=== PATIENT | male | born 1985 | race Caucasian/White ===

== ENCOUNTER 2018-09-23 07:20 | Emergency (ER) | payer BC ==
--- OUTSIDE RECORDS SUMMARY | 2018-09-23 07:23 | XMS REPORT | Clinical Summary ---
:1985 Author Organization [facility] Address [address] [place] [address] Care Team Providers Name Role Phone Troy Luna MD Primary Care Provider Allergies Active Allergy Reactions Severity Noted Date Comments Sulfa (Sulfonamide Antibiotics) 08/01/2016 Medications Medication Sig Dispensed Refills Start Date End Date Status metoprolol tartrate 1 tablet daily. 0 Active (LOPRESSOR) 50 mg tablet Hospital, Clinic, or Ordered Dose Route Frequency Start Date End Date Status Other Facility Administered Medication onabotulinumtoxinA 200 Units inj once 08/21/2016 Active (BOTOX) injection 200 UnitsIndications: Spasmodic torticollis onabotulinumtoxinA 200 Units inj once 11/20/2016 Active (BOTOX) injection 200 UnitsIndications: Spasmodic torticollis onabotulinumtoxinA 200 Units inj once 02/19/2017 Active (BOTOX) injection 200 UnitsIndications: Spasmodic torticollis onabotulinumtoxinA 200 Units inj once 02/18/2018 Active (BOTOX) injection 200 8 UnitsIndications: Spasmodic torticollis onabotulinumtoxinA 200 Units inj once 06/18/2017 Discontinued (BOTOX) injection 200 8 UnitsIndications: Spasmodic torticollis onabotulinumtoxinA 200 Units inj once 10/22/2017 Discontinued (BOTOX) injection 200 8 UnitsIndications: Spasmodic torticollis Active Problems Problem Noted Date Abnormal liver enzymes 08/01/2016 Neck pain 08/01/2016 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 08/01/2016 Encounters Date Type Specialty Care Team Description 02/18/2018 Clinical Support Neurology Fadia Mullins MD Spasmodic torticollis 02/17/2018 Telephone Neurology Fadia Mullins MD 10/22/2017 Clinical Support Neurology Fadia Mullins MD Tic of organic origin (Primary Dx); Spasmodic torticollis after 09/22/2017 Social History Tobacco Use Types Packs/Day Years Used Date Former Smoker Smokeless Tobacco: Never Used Alcohol Use Drinks/Week oz/Week Comments Yes Occasional Sex Assigned at Date Recorded Not on file Job Start Date Occupation Industry Not on file Not on file Not on file Travel History Travel Start Travel End No recent travel history available. Last Filed Vital Signs Vital Sign Reading Time Taken Blood Pressure 112/75 02/18/2018 1:07 PM CDT Pulse 68 02/18/2018 1:07 PM CDT Temperature - - Respiratory Rate - - Oxygen Saturation - - Inhaled Oxygen Concentration - - Weight 102 kg (224 lb 12.8 oz) 02/18/2018 1:07 PM CDT Height 172.7 cm (5' 8") 02/18/2018 1:07 PM CDT Body Mass Index 34.18 02/18/2018 1:07 PM CDT Plan of Treatment Health Maintenance Due Date Last Done Comments INFLUENZA VACCINE 04/02/2018 Results Not on fileafter 09/22/2017 Insurance Payer Benefit Plan / Group Subscriber ID Type Phone Address BCBS BCBS CHOICE PPO/FEDERAL EMPL PPO xxxxxxxxxxxx PPO Advance Directives Patient has advance care planning documents on file. For more information, please contact:Liang [id number] [place] [address]
--- OUTSIDE RECORDS SUMMARY | 2018-09-23 07:23 | XMS REPORT | Continuity of Care Document ---
:1985 Author Organization Interface Problems Problem Status Onset Date Classification Date Comments Source Reported Medications Medication Details Route Status Patient Ordering Order Source Instructions Provider Date Allergies, Adverse Reactions, Alerts Substance Category Reaction Severity Reaction Status Date Comments Source type Reported Immunizations Immunization Date Given Site Status Last Updated Comments Source Results Order Results Value Reference Date Interpretation Comments Source Name Range Vital Signs Vital Sign Value Date Comments Source Encounters Location Location Encounter Encounter Reason Attending ADM DC Status Source Details Type Number For Provider Date Date Visit Outpatient [id number] [place] 06[facility]18 [facility] Outpatient [id number] [place] 08[facility]18 [facility] Outpatient [id number] [place] 12/09 [facility] Procedures Procedure Code Date Perfomer Comments Source
[2018-09-23] MEDS ORDERED: KETOROLAC 30 MG/ML INJ ONE (07:55)
[2018-09-23] MEDS ORDERED: DEXAMETHASONE 10 MG/ML VIAL ONE (07:55)
--- NOTE | 2018-09-23 08:07 | ER ---
Nurse's Notes [facility] Name: Aleks Collier Age: 33 yrs Sex: Male : 1985 Arrival Date: 09/23/2018 Time: 07:23 Bed 20 Private MD: Troy Luna T Diagnosis: Gout;Inflammatory arthritis Presentation: 09/23 07:24 Presenting complaint: Patient states: "I have fluid all around my knee. It's been ss building up for the last week. It has happened before, but it's been a long time." Denies injury. Transition of care: patient was not received from another setting of care. Onset of symptoms was September 15, 2018. Risk Assessment: Do you want to hurt yourself or someone else? Patient reports no desire to harm self or others. Initial Sepsis Screen: Does the patient meet any 2 criteria? No. Patient's initial sepsis screen is negative. Does the patient have a suspected source of infection? No. Patient's initial sepsis screen is negative. Care prior to arrival: None. 07:24 Method Of Arrival: Ambulatory ss 07:24 Acuity: PRABHJOT 3 ss Historical: - Allergies: 07:25 Sulfa (Sulfonamide Antibiotics); ss - Home Meds: 07:29 allopurinol 300 mg Oral tab 1 tab once daily [Active]; metoprolol tartrate 100 mg Oral tw2 tab 1 tab once daily [Active]; - PMHx: 07:25 Gout; Hypertension; ss - PSHx: 07:25 None; ss - Immunization history:: Adult Immunizations up to date. - Social history:: Smoking status: Patient uses tobacco products, denies chronic smoking, but will smoke occasionally. - Ebola Screening: : Patient denies exposure to infectious person Patient denies travel to an Ebola-affected area in the 21 days before illness onset. - Family history:: not pertinent. - Hospitalizations: : No recent hospitalization is reported. Screenin:28 Abuse screen: Denies threats or abuse. Nutritional screening: No deficits noted. tw2 Tuberculosis screening: No symptoms or risk factors identified. Fall Risk None identified. Assessment: 07:35 General: Appears in no apparent distress. Behavior is calm, cooperative, appropriate tw2 for age. Pain: Complains of pain in left knee. Neuro: Level of Consciousness is awake, alert, obeys commands, Oriented to person, place, time, situation. Cardiovascular: Heart tones S1 S2 Patient's skin is warm and dry. Respiratory: Airway is patent is compromised Respiratory effort is even, unlabored, Respiratory pattern is regular, symmetrical, Breath sounds are clear bilaterally. GI: No signs and/or symptoms were reported involving the gastrointestinal system. : No signs and/or symptoms were reported regarding the genitourinary system. EENT: No signs and/or symptoms were reported regarding the EENT system. Derm: multiple dry patches on arms and legs, appears to be psoriasis. Musculoskeletal: Circulation, motion, and sensation intact. Range of motion: intact in all extremities, Swelling present in left knee. 08:14 Reassessment: Patient appears in no apparent distress at this time. No changes from tw2 previously documented assessment. Patient and/or family updated on plan of care and expected duration. Pain level reassessed. Patient is alert, oriented x 3, equal unlabored respirations, skin warm/dry/pink. Vital Signs: 07:25 BP 119 / 69; Pulse 75; Resp 16; Temp 97.7(TE); Pulse Ox 97% on R/A; Weight 95.25 kg; ss Height 5 ft. 8 in. (172.72 cm); Pain 8/10; 07:25 Body Mass Index 31.93 (95.25 kg, 172.72 cm) ED Course: 07:23 Patient arrived in ED. sb2 07:23 Troy Luna MD is Private Physician. sb2 07:25 Triage completed. ss 07:25 Arm band placed on right wrist. ss 07:28 Winston Santos MD is Attending Physician. rn 07:28 Clary Fenton RN is Primary Nurse. tw2 07:28 Placed in gown. Bed in low position. Adult w/ patient. Pulse ox on. NIBP on. Warm tw2 blanket given. 08:15 No provider procedures requiring assistance completed. Patient did not have IV access tw2 during this emergency room visit. Administered Medications: 07:46 Drug: TORadol 60 mg Route: IM; Site: right gluteus; tw2 08:15 Follow up: Response: No adverse reaction; Pain is decreased tw2 07:50 Drug: Decadron 10 mg Route: IM; Site: left gluteus; tw2 08:15 Follow up: Response: No adverse reaction tw2 Outcome: 08:06 Discharge ordered by . rn 08:15 Discharged to home ambulatory, with significant other. tw2 08:15 Condition: stable 08:15 Discharge instructions given to patient, significant other, Instructed on discharge instructions, follow up and referral plans. no drinking with medication, no driving heavy equipment, medication usage, Demonstrated understanding of instructions, follow-up care, medications, Prescriptions given X 2. 08:15 Patient left the ED. tw2 Signatures: Winston Santos MD MD rn Smirch, Shelby, RN RN ss Wise, Tara, RN RN tw2 Elizabeth Medeiros sb2
--- NOTE | 2018-09-23 08:07 | EDPHYS ---
Physician Documentation [facility] Name: Aleks Collier Age: 33 yrs Sex: Male : 1985 Arrival Date: 09/23/2018 Time: 07:23 Bed 20 Private MD: Troy Luna T ED Physician Winston Santos HPI: 09/23 07:53 This 33 yrs old Male presents to ER via Ambulatory with complaints of Knee rn Pain. 07:53 The patient presents with pain, swelling. The complaints affect the left knee. Onset: rn The symptoms/episode began/occurred 1 week(s) ago. Modifying factors: The symptoms are alleviated by remaining still, the symptoms are aggravated by movement, weight bearing. Severity of symptoms: At their worst the symptoms were mild, in the emergency department the symptoms are unchanged. The patient has experienced a previous episode. REports left knee with swelling and pain, began 1 week ago, similar and worse episode last time, reports joint fluid was negative for infection, diagnosed with gout, gets pain in left foot and left knee with gout, has been ambulatory, no IV drug use, no fever, no trauma. This episode not as bad, still working. . Historical: - Allergies: 07:25 Sulfa (Sulfonamide Antibiotics); ss - Home Meds: 07:29 allopurinol 300 mg Oral tab 1 tab once daily [Active]; metoprolol tartrate 100 mg Oral tw2 tab 1 tab once daily [Active]; - PMHx: 07:25 Gout; Hypertension; ss - PSHx: 07:25 None; ss - Immunization history:: Adult Immunizations up to date. - Social history:: Smoking status: Patient uses tobacco products, denies chronic smoking, but will smoke occasionally. - Ebola Screening: : Patient denies exposure to infectious person Patient denies travel to an Ebola-affected area in the 21 days before illness onset. - Family history:: not pertinent. - Hospitalizations: : No recent hospitalization is reported. ROS: 07:53 Constitutional: Negative for fever, chills, and weight loss, Cardiovascular: Negative rn for chest pain, palpitations, and edema, Respiratory: Negative for shortness of breath, cough, wheezing, and pleuritic chest pain, MS/Extremity: Negative for injury and deformity, Skin: Negative for injury, rash, and discoloration, Neuro: Negative for headache, weakness, numbness, tingling, and seizure. Exam: 07:53 Constitutional: This is a well developed, well nourished patient who is awake, alert, rn and in no acute distress. Skin: Psoriatic plaques throughout MS/ Extremity: Pulses equal, no cyanosis. Neurovascular intact. Mild pain with ROM, but ambulatory without limp, able to undress with flexion and extension of knee without difficulty, mild warmth, no overlying cellulitis. Neuro: Awake and alert, GCS 15, oriented to person, place, time, and situation. Motor strength 5/5 in all extremities. Sensory grossly intact. Cerebellar exam normal. Normal gait. Vital Signs: 07:25 BP 119 / 69; Pulse 75; Resp 16; Temp 97.7(TE); Pulse Ox 97% on R/A; Weight 95.25 kg; ss Height 5 ft. 8 in. (172.72 cm); Pain 8/10; 07:25 Body Mass Index 31.93 (95.25 kg, 172.72 cm) ss MDM: 07:28 Patient medically screened. rn 08:03 Differential diagnosis: arthritis, gout, inflammatory arthritis. Data reviewed: vital rn signs, nurses notes, and as a result, I will discharge patient. Counseling: I had a detailed discussion with the patient and/or guardian regarding: the historical points, exam findings, and any diagnostic results supporting the discharge/admit diagnosis, the need for outpatient follow up, to return to the emergency department if symptoms worsen or persist or if there are any questions or concerns that arise at home. Response to treatment: the patient's symptoms have mildly improved after treatment, and as a result, I will discharge patient. Special discussion: I discussed with the patient/guardian in detail that at this point there is no indication for admission to the hospital. It is understood, however, that if the symptoms persist or worsen the patient needs to return immediately for re-evaluation. ED course: This has happened multiple times with same knee/leg, no fever, no drug use, last time joint aspirated and negative for infection, after discussion with patient joint decision made that aspiration risk higher than benefit and will dc home with OTC pain meds and steroids. . Administered Medications: 07:46 Drug: TORadol 60 mg Route: IM; Site: right gluteus; tw2 08:15 Follow up: Response: No adverse reaction; Pain is decreased tw2 07:50 Drug: Decadron 10 mg Route: IM; Site: left gluteus; tw2 08:15 Follow up: Response: No adverse reaction tw2 Disposition: 09/23/18 08:06 Discharged to Home. Impression: Gout, Inflammatory arthritis . - Condition is Stable. - Discharge Instructions: Arthritis, Gout. - Prescriptions for Medrol (Yoan) 4 mg Oral Tablets, Dose Pack - take 1 tablet by ORAL route as directed - follow package instructions; 1 packet. Diclofenac Sodium 75 mg Oral Tablet Sustained Release - take 1 tablet by ORAL route 2 times per day; 30 tablet. - Medication Reconciliation Form, Thank You Letter, Antibiotic Education, Prescription Opioid Use, Work release form form. - Follow up: Private Physician; When: As needed; Reason: Recheck today's complaints, Re-evaluation by your physician. - Problem is new. - Symptoms have improved. Signatures: Winston Santos MD MD rn Smirch, Shelby, RN RN Clary Fenton RN RN tw2 Corrections: (The following items were deleted from the chart) 08:15 08:06 09/23/2018 08:06 Discharged to Home. Impression: Gout; Inflammatory arthritis . tw2 Condition is Stable. Forms are Work release form, Medication Reconciliation Form, Thank You Letter, Antibiotic Education, Prescription Opioid Use. Follow up: Private Physician; When: As needed; Reason: Recheck today's complaints, Re-evaluation by your physician. Problem is new. Symptoms have improved. rn
== END 2018-09-23 08:15 | disposition home or self-care (01) ==
LOC: ER 07:20
DX: M10.9 Gout, unspecified (principal); M17.12 Unilateral primary osteoarthritis, left knee; I10 Essential (primary) hypertension; Z79.899 Other long term (current) drug therapy; Z72.0 Tobacco use
CPT/HCPCS: 96372; 99283; J1100

== ENCOUNTER 2025-06-14 15:52 | Inpatient (IN) | payer BC ==
--- NOTE | 2025-06-14 16:46 | RAD REPORT ---
EXAMINATION: CT ABDOMEN AND PELVIS WITHOUT CONTRAST CLINICAL INDICATION: Pain, Black tarry stool TECHNIQUE: CT abdomen and pelvis was performed, without IV contrast, as per department protocol. Axia l, sagittal and coronal reconstructions were obtained. One or more of the following dose reduction techniques were used: Automated exposure control, adjustment of the mA and kV according to the patien t size, and iterative reconstruction. Unless otherwise specified, incidental findings do not require dedicated imaging follow-up. COMPARISON: 08/28/2021 FINDINGS: The lack of intravenous contrast limits the sensitivity of this exam for evaluation of solid visceral organs, vascular structures, and retroperitoneum. LOWER CHEST: The visualized lung bases are clear. LIVER:Liver is prominent in size with diffuse fatty infiltration. Grossly unremarkable gallbladder. SPLEEN: Normal size. No focal lesion. PANCREAS: No mass, ductal dilation, or beulah-pancreatic fluid. ADRENALS: Normal; no mass. 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 No hydronephrosis. URINARY BLADDER: Normal contour. GASTROINTESTINAL TRACT: No evidence of bowel obstruction, significant free fluid, free air or abscess . Multifocal large ventral/umbilical hernias. APPENDIX: Normal appendix. LYMPH NODES: No lymphadenopathy. MUSCULOSKELETAL: Mild multilevel spinal degenerative changes. ADDITIONAL FINDINGS: Moderate fat-containing right inguinal hernia. IMPRESSION: No acute abnormalities in the abdomen or pelvis, with evaluation limited by lack of IV contrast. Prominent hepatic size with diffuse fatty infiltration. Multifocal large fat-containing ventral hernias without bowel involvement.
[2025-06-14 16:57] LABS: Absolute Lymphocytes (CBC) 0.7 K/uL (0.7-4.9); Hematocrit 49.5 % (39.6-49.0); Hemoglobin 16.4 g/dL (13.6-17.9); MCH 35.7 pg (27.0-35.0); MCHC 33.0 g/dL (32.0-36.0); MCV 108.1 fL (80-100); MPV 8.2 fL (7.6-11.3); Nucleated RBC Absolute Count 0.0 (0-0); Nucleated Red Blood Cells % 0.1 % (0-0); RBC Red Blood Cell Count 4.58 M/uL (4.33-5.43); White Blood Count 8.40 thou/uL (4.3-10.9)
[2025-06-14 17:16] LABS: ALT/SGPT 172.0 U/L (16-61); AST/SGOT 99.0 U/L (15-37); Albumin 4.0 g/dL (3.4-5.0); Albumin/Globulin Ratio 1.1 (1.1-1.8); Alkaline Phosphatase 86.0 U/L (45-117); Anion Gap 10.5 mEq/L (5.0-15.0); BUN Blood Urea Nitrogen 30.0 mg/dL (7-18); Globulin 3.8 g/dL (2.3-3.5); Glucose Level 127.0 mg/dL (74-106); Lipase 55.0 U/L (13-75); Potassium 4.5 mEq/L (3.5-5.1)
[2025-06-14] MEDS ORDERED: ONDANSETRON 4 MG/2 ML VIAL ONE (17:22)
[2025-06-14] MEDS ORDERED: NA CHLORIDE 0.9% 1,000 ML ONE (17:24)
[2025-06-14] MEDS ORDERED: PANTOPRAZOLE 40 MG INJ ONE (17:24)
--- NOTE | 2025-06-14 17:31 | EDPHYS ---
Physician Documentation [facility] Name: Aleks Collier Age: 40 yrs Sex: Male : 1985 Arrival Date: 06/14/2025 Time: 15:52 Bed 16 Private MD: ED Physician Winston Santos HPI: 06/14 17:28 This 40 yrs old Male presents to ER via Ambulatory with complaints of Abdominal Pain, rn Black/Tarry Stools, Back Pain. 17:28 Patient reports epigastric pain that began this morning and has had 2 dark black tarry rn stool. Does not take blood thinners. No fever or chills. No trauma. No chest pain or shortness of breath. Reports lightheaded and generalized malaise. 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 - Infectious Disease History:: Denies. - Social history:: Smoking status: Patient/guardian denies using tobacco, but has a distant history of tobacco abuse. - Family history:: not pertinent. - Hospitalizations: : No recent hospitalization is reported. ROS: 17:28 Constitutional: Negative for fever, chills, and weight loss, Cardiovascular: Negative rn for chest pain, palpitations, and edema, Respiratory: Negative for shortness of breath, cough, wheezing, and pleuritic chest pain, Abdomen/GI: Positive for epigastric pain and melena MS/Extremity: Negative for injury and deformity, Skin: Negative for injury, rash, and discoloration, Neuro: Positive for generalized weakness and malaise Exam: 17:28 Constitutional: This is a well developed, well nourished patient who is awake, alert, rn and in no acute distress. Cardiovascular: Tachycardic, regular Respiratory: No increased work of breathing, no retractions or nasal flaring. Abdomen/GI: Soft, mild epigastric tenderness without rebound or guarding. 18:49 ECG was reviewed by the Attending Physician. rn Vital Signs: 15:59 BP 126 / 81; Pulse 114; Resp 18; Temp 98.2; Pulse Ox 97% ; Weight 113.4 kg; Height 5 me1 ft. 9 in. ; Pain 8/10; 17:40 BP 118 / 78; Pulse 98; Resp 20; Temp 98.3; Pulse Ox 100% on R/A; kj2 19:43 BP 130 / 76; Pulse 100; Resp 20; Temp 98.3; Pulse Ox 100% on R/A; kj2 20:47 BP 118 / 66; Pulse 98; Resp 18; Pulse Ox 96% on R/A; kj2 15:59 Body Mass Index 36.92 (113.40 kg, 175.26 cm) me1 15:59 Pain Scale: Adult me1 MDM: 15:59 Medical Screening Exam initiated rn 17:30 Differential diagnosis: Peptic Ulcer Perforated Ulcer Gastritis, duodenitis, upper GI rn bleed. Data reviewed: vital signs, nurses notes, lab test result(s), radiologic studies, CT scan, and as a result, I will admit patient. Consideration of Admission/Observation Patient was admitted/placed on observation. Escalation of care including admission/observation considered. Independent interpretation of the following test(s) in the Emergency Department CT Scan: My interpretation is CT abdomen pelvis images negative for pneumoperitoneum or perforation per my interpretation. groundwater monitoring technician: rate is 115 beats/min, Rhythm is sinus tachycardia, with no ectopy, Interpretation: tachycardia. Care significantly affected by the following chronic conditions: Diabetes, Hypertension. Counseling: I had a detailed discussion with the patient and/or guardian regarding the historical points, exam findings, and any diagnostic results supporting the discharge/admit diagnosis, lab results, radiology results, the need for further work-up and treatment in the hospital. Response to treatment: There is no appreciated change of the patient's symptoms at this time, and as a result, I will admit patient. 06/14 16:04 Order name: CBC with Diff; Complete Time: 17:45 rn 06/14 16:04 Order name: CMP; Complete Time: 17:22 rn 06/14 16:04 Order name: Lipase; Complete Time: 17:22 rn 06/14 16:04 Order name: Protime (+inr); Complete Time: 17:45 rn 06/14 16:04 Order name: Ptt, Activated; Complete Time: 17:45 rn 06/14 17:00 Order name: CBC Smear Scan; Complete Time: 17:45 EDMS 06/14 19:27 Order name: CBC with Automated Diff EDMS 06/14 19:27 Order name: CBC with Automated Diff EDMS 06/14 19:27 Order name: CBC with Automated Diff EDMS 06/14 19:27 Order name: Comprehensive Metabolic Panel EDMS 06/14 19:27 Order name: Comprehensive Metabolic Panel EDMS 06/14 19:27 Order name: Comprehensive Metabolic Panel EDMS 06/14 19:27 Order name: Lipid Profile EDMS 06/14 19:27 Order name: Lipid Profile EDMS 06/14 19:27 Order name: Magnesium EDMS 06/14 19:27 Order name: Magnesium EDMS 06/14 19:27 Order name: Magnesium EDMS 06/14 19:27 Order name: Phosphorus EDMS 06/14 19:27 Order name: Phosphorus EDMS 06/14 19:27 Order name: Phosphorus EDMS 06/14 16:30 Order name: Abdomen ; Complete Time: 16:52 EDMS 06/14 19:23 Order name: Abdomen Exam Complete EDMS 06/14 16:05 Order name: EKG; Complete Time: 16:05 rn 06/14 19:22 Order name: Dr Heber Vences EDMS 06/14 16:04 Order name: IV Saline Lock; Complete Time: 17:35 rn 06/14 16:04 Order name: Labs collected and sent; Complete Time: 17:35 rn 06/14 16:05 Order name: EKG - Nurse/Tech; Complete Time: 18:29 rn EC:49 Rate is 102 beats/min. Rhythm is regular. QRS [place] is Normal. [place] interval is normal. rn QRS interval is normal. QT interval is normal. No Q waves. T waves are Normal. Clinical impression: Sinus tachycardia. Interpreted by me. Reviewed by me. Administered Medications: 17:35 Drug: Ondansetron IVP 4 mg IVP once; over 2 minutes Route: IVP; Site: left antecubital; kj2 17:35 Drug: NS 0.9% IV 1000 ml IV at 1 bolus Per protocol; to be given as a bolus over 60 kj2 minutes Route: IV; Rate: 1 bolus; Site: left antecubital; 17:35 Drug: Pantoprazole IVP 40 mg IVP once Route: IVP; Site: left antecubital; kj2 18:00 Follow up: Response: No adverse reaction kj2 18:27 Drug: Pantoprazole IV 8 mg/hr IV at 25 ml/hr continuous; (Standard dilution is 80 mg in kj2 250 mL NS) Route: IV; Rate: 25 ml/hr; Site: left antecubital; 21:18 Follow up: IV Status: Infusion continued upon admission kj2 19:53 Drug: morphine IVP or IV 4 mg IVP once over 4 mins Route: IVP; Infused Over: 4 mins; kj2 Site: left antecubital; 20:15 Follow up: Response: No adverse reaction; Pain is decreased kj2 Disposition Summary: 06/14/25 17:31 Hospitalization Ordered Notes: Hospitalization Status: Observation rn Provider: Dennis Jones rn Location: Telemetry/MedSurg (observation) rn Condition: Stable rn Problem: new rn Symptoms: are unchanged rn Bed/Room Type: Standard rn Room Assignment: 218(06/14/25 19:31) vc1 Diagnosis - Melena rn - Abdominal pain, unspecified rn Forms: - Medication Reconciliation Form rn - SBAR form rn - Leadership Thank You Letter rn Signatures: Dispatcher [employer] EDMS Winston Santos MD MD rn Calcote, Vanessa RN RN vc1 Angelica Moran RN RN me1 Callie Jauregui RN RN kj2 Corrections: (The following items were deleted from the chart) 16:30 16:22 Abdomen ordered. EDHI EDMS 16:31 16:04 Abdomen Angio+CT.RAD.BRZ ordered. EDMS EDMS 16:31 16:22 Pelvis Angio ordered. EDHI EDMS 19:31 17:31 rn vc1
--- NOTE | 2025-06-14 17:31 | ER ---
Nurse's Notes [facility] Name: Aleks Collier Age: 40 yrs Sex: Male : 1985 Arrival Date: 06/14/2025 Time: 15:52 Bed 16 Private MD: Diagnosis: Melena;Abdominal pain, unspecified Presentation: 06/14 15:59 Chief complaint: Patient states: Starting this morning epigastric and RUQ abdominal me1 pain, with nausea and black stools x 2 today. Pain level 8/10. Coronavirus screen: At this time, the client does not indicate any symptoms associated with coronavirus-19. Ebola Screen: No symptoms or risks identified at this time. Initial Sepsis Screen: Does the patient meet any 2 criteria? HR > 90 bpm. Does the patient have a suspected source of infection? No. Patient's initial sepsis screen is negative. Risk Assessment: Do you want to hurt yourself or someone else? Patient reports no desire to harm self or others. Onset of symptoms was June 14, 2025 at 08:00. 15:59 Method Of Arrival: Ambulatory [facility] [place] 15:59 Acuity: PRABHJOT 3 me1 Triage Assessment: 17:40 GI: Reports upper abdominal pain, bloody stool. kj2 Historical: - Allergies: 16:03 Sulfa (Sulfonamide Antibiotics); me1 - PMHx: 16:03 Gout; Hypertension; Umbilical hernia; me1 16:05 Diabetes mellitus; me1 - PSHx: 16:03 born with one kidney; me1 - Immunization history:: Adult Immunizations up to date. - Infectious Disease History:: Denies. - Social history:: Smoking status: Patient/guardian denies using tobacco, but has a distant history of tobacco abuse. - Family history:: not pertinent. - Hospitalizations: : No recent hospitalization is reported. Screenin:00 [facility] ED Fall Risk Assessment (Adult) History of falling in the last 3 months, kj2 including since admission No falls in past 3 months (0 pts) Confusion or Disorientation No (0 pts) Intoxicated or Sedated No (0 pts) Impaired Gait No (0 pts) Mobility Assist Device Used No (0 pt) Altered Elimination No (0 pt) Score/Fall Risk Level 0 - 2 = Low Risk Maintained a safe environment, Hourly rounding (assess needs \T\ fall precautionary measures) done. Abuse screen: Denies threats or abuse. Denies injuries from another. Nutritional screening: No deficits noted. Tuberculosis screening: No symptoms or risk factors identified. Assessment: 17:00 General: Appears in no apparent distress. Behavior is cooperative. Pain: Complains of kj2 pain in epigastric Pain currently is 6 out of 10 on a pain scale. Neuro: Level of Consciousness is awake, alert, obeys commands, Oriented to person, place, time, situation. Cardiovascular: Patient's skin is warm and dry. Respiratory: Airway is patent Respiratory effort is unlabored. : No signs and/or symptoms were reported regarding the genitourinary system. 17:35 Reassessment: pharmacy will deliver protonix once mixed. kj2 17:40 Reassessment: Patient appears in no apparent distress at this time. kj2 18:40 Reassessment: Patient appears in no apparent distress at this time. Patient is alert, kj2 oriented x 3, equal unlabored respirations, skin warm/dry/pink. 19:42 Reassessment: Patient appears in no apparent distress at this time. Patient and/or kj2 family updated on plan of care and expected duration. Pain level reassessed. Vital Signs: 15:59 BP 126 / 81; Pulse 114; Resp 18; Temp 98.2; Pulse Ox 97% ; Weight 113.4 kg; Height 5 me1 ft. 9 in. ; Pain 8/10; 17:40 BP 118 / 78; Pulse 98; Resp 20; Temp 98.3; Pulse Ox 100% on R/A; kj2 19:43 BP 130 / 76; Pulse 100; Resp 20; Temp 98.3; Pulse Ox 100% on R/A; kj2 20:47 BP 118 / 66; Pulse 98; Resp 18; Pulse Ox 96% on R/A; kj2 15:59 Body Mass Index 36.92 (113.40 kg, 175.26 cm) me1 15:59 Pain Scale: Adult me1 ED Course: 15:56 Patient arrived in ED. cj3 15:59 Winston Santos MD is Attending Physician. rn 16:03 Triage completed. me1 16:05 Arm band placed on Patient placed in waiting room. me1 16:31 Abdomen In Process Unspecified. EDMS 16:37 Inserted saline lock: 18 gauge in left antecubital area, using aseptic technique. me1 ,using aseptic technique. by Jamie in CT Blood collected. Flushed with 10 mL NS. 17:00 Patient has correct armband on for positive identification. Bed in low position. Call kj2 light in reach. Provided Education on: call light. 17:02 Callie Jauregui, RN is Primary Nurse. kj2 17:31 Dennis Jones RN is Hospitalizing Provider. rn 18:29 EKG done, by electronic communications technician. reviewed by Winston Santos MD. ts3 21:15 No provider procedures requiring assistance completed. Patient admitted, IV remains in kj2 place. Administered Medications: 17:35 Drug: Ondansetron IVP 4 mg IVP once; over 2 minutes Route: IVP; Site: left antecubital; kj2 17:35 Drug: NS 0.9% IV 1000 ml IV at 1 bolus Per protocol; to be given as a bolus over 60 kj2 minutes Route: IV; Rate: 1 bolus; Site: left antecubital; 17:35 Drug: Pantoprazole IVP 40 mg IVP once Route: IVP; Site: left antecubital; kj2 18:00 Follow up: Response: No adverse reaction kj2 18:27 Drug: Pantoprazole IV 8 mg/hr IV at 25 ml/hr continuous; (Standard dilution is 80 mg in kj2 250 mL NS) Route: IV; Rate: 25 ml/hr; Site: left antecubital; 21:18 Follow up: IV Status: Infusion continued upon admission kj2 19:53 Drug: morphine IVP or IV 4 mg IVP once over 4 mins Route: IVP; Infused Over: 4 mins; kj2 Site: left antecubital; 20:15 Follow up: Response: No adverse reaction; Pain is decreased kj2 Medication: 21:17 VIS not applicable for this client. kj2 Outcome: 17:31 Decision to Hospitalize by Provider. rn 21:16 Admitted to Med/surg accompanied by tech, via wheelchair, kj2 21:16 Condition: stable 21:16 Instructed on the need for admit, 21:19 Patient left the ED. kj2 Signatures: Dispatcher [employer] EDWinston Graff MD MD rn Eddleman, Michelle, RN RN me1 Callie Jauregui RN RN kj2 Nhung Chacon 3 Sylvia Sheikh ts3 Corrections: (The following items were deleted from the chart) 19:43 17:40 BP 118 / 78; Pulse 98bpm; Resp 20bpm; Pulse Ox 100% RA; kj2 kj2
[2025-06-14] MEDS: PANTOPRAZOLE INJ 80 MG in NA CHLORIDE 0.9% 250 ML IV SCH ×2 (17:32→20:00)
[2025-06-14 17:35] LABS: PT Prothrombin Time 12.0 SECONDS (10-13.0); PTT, Activated Partial Thromb 29.7 SECONDS (27.2-37.4); Protime INR 1.06
[2025-06-14 17:43] LABS: Anisocytosis 1+; Blood Morphology Comment NOTED (NOT SEEN); Macrocytosis 1+; White Blood Cell Scan OK (OK)
[2025-06-14] MEDS ORDERED: ONDANSETRON 4 MG/2 ML VIAL IV PRN (19:22)
--- NOTE | 2025-06-14 19:22 | P.HP ---
Certification for Inpatient Patient admitted to: Observation With expected LOS: <2 Midnights Patient will require the following post-hospital care: None Practitioner: I am a practitioner with admitting privileges, knowledge of patient current condition, hospital course, and medical plan of care. Services: Services provided to patient in accordance with Admission requirements found in Title 42 Section 412.3 of the Code of Federal Regulations Patient History Date of Service: 06/14/25 Reason for admission: Abdominal pain. History of Present Illness: Patient is a pleasant 40-year-old male with past medical history of gout, essential hypertension, umbilical hernia, type 2 diabetes mellitus, who reports to ER today complaining of diffuse abdominal pain with associated nausea but no vomiting. Patient states his abdominal pain started about 10 am, states when he went to use the restroom, his bowel movement was black and tarry, states that remained consistent throughout the day. Patient states he reported to ER because his abdominal pain progressively worsening with associated nausea but no vomiting. Patient denies of any chest pain or shortness of breath. According to report received from ER, [facility] GI Dr. Vences was consulted, and states will see patient in AM. Course in ER. (1) CT abdomen and pelvis without contrast. Impression: No acute abnormalities in the abdomen or pelvis, with the evaluation limited by lack of IV contrast. Prominent hepatic size with diffuse fatty infiltration. Multifocal large fat-containing ventral hernias without bowel involvement. Allergies Sulfa (Sulfonamide Antibiotics) Allergy (Mild, Verified 06/14/25 22:42) Unknown Home Medications: Allopurinol 100 mg PO DAILY 06/14/25 Empagliflozin [Jardiance] 1 tab PO DAILY 06/14/25 lisinopriL [Lisinopril] 1 tab PO DAILY 06/14/25 - Past Medical/Surgical History -: Gout. -: Essential hypertension. -: Umbilical hernia. -: Type 2 diabetes mellitus. -: Born with 1 kidney. Past Surgical History: Reviewed- Non-Contributory - Social History Smoking Status: Former smoker Alcohol use: Yes CD- Drugs: No Caffeine use: Yes Place of Residence: Home Review of Systems 10-point ROS is otherwise unremarkable Gastrointestinal: Abdominal Pain (Black tarry stool.) Physical Examination - Physical Exam General: Alert, In no apparent distress, Oriented x3 HEENT: Atraumatic, Normocephalic, Mucous membr. moist/pink, Sclerae nonicteric Neck: Supple, 2+ carotid pulse no bruit, JVD not distended, No Thyromegaly, No LAD, Without JVD or thyroid abnormality Respiratory: Clear to auscultation bilaterally, Normal air movement Cardiovascular: No edema, Normal pulses, Regular rate/rhythm, Normal S1 S2, No gallops, No rubs, No murmurs Gastrointestinal: Normal bowel sounds, Soft and benign, Non-distended, No ascites, No masses, No rebound, No guarding, Hepatomegaly, Tenderness Musculoskeletal: No clubbing, No swelling, No contractures, No erythema, No tenderness, No warmth Integumentary: No rashes, No breakdown, No significant lesion, No tenderness/swelling, No erythema, No warmth, No cyanosis Neurological: Normal gait, Normal speech, Normal strength at 5/5 x4 extr, Normal tone, Sensation intact, Cranial nerves 3-12 intact, Normal reflexes 2+, Normal affect Lymphatics: No axilla or inguinal lymphadenopathy - Studies Laboratory Data (last 24 hrs) 06/14/25 06/14/25 06/14/25 17:20 16:38 16:38 WBC 8.40 Hgb 16.4 Hct 49.5 H Plt Count 140 L PT 12.0 INR 1.06 APTT 29.7 Sodium 136 Potassium 4.5 BUN 30 H Creatinine 1.69 H Glucose 127 H Total Bilirubin 1.4 H AST 99 H ALT 172 H Alkaline Phosphatase 86 Lipase 55 Male Exam - Male Exam Inguinal exam: No hernias Assessment and Plan - Plan Patient admitted observation with diagnosis of abdominal pain/GI bleed.. (1Abdominal pain with GI Bleed. -Protonix 80mg/250 mL at 25 mL/ hr. -Consult GI Dr. Vences. -Morphine 4 mg as needed every 4 hours IV. -NPO after midnight. -IV NS at 100 mL an hour x 1 L. -Zofran 4 mg IV as needed every 6 hours. -Monitor trending of H&H (2)Chronic type 2 diabetes mellitus. -ACHS with mild sliding scale coverage. Accu-Chek Q6 when NPO. (3)Home meds to be resumed when reconciled. (4)Explained entire treatment plan to the patient, solicited questions answered and voiced understanding. Discharge Plan: Home Plan to discharge in: 48 Hours - Advance Directives Does patient have a Living Will: No Does patient have a Durable POA for Healthcare: No - Code Status/Comfort Care Code Status Assessed: Yes Code Status: Full Code Critical Care: No Time Spent Managing Pts Care (In Minutes): 55
[2025-06-14] MEDS ORDERED: MORPHINE 4 MG/ML SYR ONE (19:41)
--- NOTE | 2025-06-14 20:33 | RAD REPORT ---
EXAMINATION: COMPLETE ABDOMINAL ULTRASOUND CLINICAL INDICATION: Right upper quad pain/ Abnormal liver enzymes TECHNIQUE: Grayscale ultrasonography of the abdomen was performed. COMPARISON: No prior exam. FINDINGS: LIVER: Increased echogenicity with reduced sonographic penetration and without focal mass. GALLBLADDER: No gallstones, gall bladder wall thickening or pericholecystic fluid. BILE DUCTS: Intrahepatic and extrahepatic bile ducts appear normal. Measured near the alli hepatis , the common bile duct is 3 mm. RIGHT KIDNEY: Cross fused renal ectopia without hydronephrosis. SPLEEN: Normal in echogenicity, with length of 12.7 cm. PANCREAS/AORTA: Partially obscured by bowel gas without abnormality grossly appreciated. IMPRESSION: Prominent diffuse fatty liver.
[2025-06-14] MEDS: NA CHLORIDE 0.9% 1,000 ML IV SCH (22:35)
[2025-06-14] MEDS: MELATONIN 5 MG TABLET PO PRN (23:16)
[2025-06-14 23:42] VITALS: BMI 36.9
[2025-06-15 05:15] LABS: Absolute Lymphocytes (CBC) 0.6 K/uL (0.7-4.9); Hematocrit 42.0 % (39.6-49.0); Hemoglobin 14.1 g/dL (13.6-17.9); MCH 36.6 pg (27.0-35.0); MCHC 33.6 g/dL (32.0-36.0); MPV 8.2 fL (7.6-11.3); Nucleated RBC Absolute Count 0.0 (0-0); Nucleated Red Blood Cells % 0.0 % (0-0); RBC Red Blood Cell Count 3.86 M/uL (4.33-5.43); White Blood Count 3.80 thou/uL (4.3-10.9)
[2025-06-15 05:19] LABS: MCV 108.7 fL (80-100)
[2025-06-15 05:28] LABS: ALT/SGPT 143.0 U/L (16-61); AST/SGOT 97.0 U/L (15-37); Albumin 3.3 g/dL (3.4-5.0); Albumin/Globulin Ratio 1.1 (1.1-1.8); Alkaline Phosphatase 68.0 U/L (45-117); Anion Gap 9.2 mEq/L (5.0-15.0); BUN Blood Urea Nitrogen 22.0 mg/dL (7-18); Globulin 3.1 g/dL (2.3-3.5); Glucose Level 113.0 mg/dL (74-106); HDL Cholesterol 46.0 mg/dL (40-60); LDL Cholesterol, Calculated 75.0 mg/dL (<130); LDL Cholesterol,Calc NonReport 75.0; Magnesium 1.8 mg/dL (1.6-2.4); Potassium 4.2 mEq/L (3.5-5.1)
[2025-06-15] MEDS: MORPHINE 4 MG/ML SYR IV PRN (05:47)
[2025-06-15] MEDS: MAGNESIUM SULFATE 1 gm IVPB 1 GM/100 ML BAG IV ONE (09:38)
[2025-06-15] MEDS: INSULIN REGULAR (HUMAN) 100 UNIT/ML SQ SCH ×2 (12:00→16:30)
[2025-06-16 05:38] LABS: Absolute Lymphocytes (CBC) 0.6 K/uL (0.7-4.9); Hematocrit 43.2 % (39.6-49.0); Hemoglobin 14.4 g/dL (13.6-17.9); MCH 36.1 pg (27.0-35.0); MCHC 33.4 g/dL (32.0-36.0); MCV 108.0 fL (80-100); MPV 8.2 fL (7.6-11.3); Nucleated RBC Absolute Count 0.0 (0-0); Nucleated Red Blood Cells % 0.1 % (0-0); RBC Red Blood Cell Count 4.00 M/uL (4.33-5.43)
[2025-06-16 05:39] LABS: White Blood Count 2.90 thou/uL (4.3-10.9)
[2025-06-16 05:55] LABS: ALT/SGPT 189.0 U/L (16-61); AST/SGOT 138.0 U/L (15-37); Albumin 3.4 g/dL (3.4-5.0); Albumin/Globulin Ratio 1.0 (1.1-1.8); Alkaline Phosphatase 71.0 U/L (45-117); Anion Gap 10.3 mEq/L (5.0-15.0); BUN Blood Urea Nitrogen 13.0 mg/dL (7-18); Globulin 3.3 g/dL (2.3-3.5); Glucose Level 99.0 mg/dL (74-106); Magnesium 2.1 mg/dL (1.6-2.4); Potassium 4.3 mEq/L (3.5-5.1)
[2025-06-16] MEDS: NA CHLORIDE 0.9% 1,000 ML ONE (12:15)
[2025-06-16] MEDS: Ringers Lactate 0 ML IV ONE (12:18)
[2025-06-16] MEDS ORDERED: LIDOCAINE 1% MPF 5 ML VIAL ONE (13:14)
[2025-06-16 13:55] VITALS: O2SAT 99
[2025-06-16 17:19] VITALS: BP 126/79; TEMP 97.6
== END 2025-06-16 19:44 | disposition home or self-care (01) | DRG 379 ==
LOC: ER 15:52 → ERHOLD 19:14 → 2ND 20:11 → OBSVTOIN 06-16 16:02
PROVIDERS: ADMIT Hospitalist; ATTEND Hospitalist
PROC: 0DB68ZX Excision of Stomach, Via Natural or Artificial Opening Endoscopic, Diagnostic (ICD-10-PCS; 2025-06-16)
PROC: 0DB98ZX Excision of Duodenum, Via Natural or Artificial Opening Endoscopic, Diagnostic (ICD-10-PCS; principal; 2025-06-16 13:00)
DX: K29.71 Gastritis, unspecified, with bleeding (principal); M10.9 Gout, unspecified; I10 Essential (primary) hypertension; E11.9 Type 2 diabetes mellitus without complications; K29.80 Duodenitis without bleeding; K44.9 Diaphragmatic hernia without obstruction or gangrene; Z88.2 Allergy status to sulfonamides; Z87.891 Personal history of nicotine dependence; Z79.899 Other long term (current) drug therapy
CPT/HCPCS: 36415; 74176; 76700; 80053; 80061; 82565; 82947; 83690; 83735; 84100; 85025; 85610; 85730; 88304; 88305; 88312; 93005; 96365; 96366; 96375; 99285; G0378; J2003; J2405; J2470; J2704; J3475; J7030; J7050; J7120